=== PATIENT | female | born 1955 | race African-American/Black ===

== ENCOUNTER 2021-02-17 13:32 | Emergency (ER) | payer OTHER ==
[2021-02-17] MEDS ORDERED: ACETAMINOPHEN 500 MG TABLET (FP) PO ONE (13:56)
[2021-02-17] MEDS ORDERED: LIDOCAINE 5% TOPICAL PATCH TP ONE (13:56)
[2021-02-17 13:58] VITALS: TEMP 98.3; BMI 24.3
[2021-02-17] MEDS ORDERED: ACETAMINOPHEN 500 MG TABLET (FP) ONE (14:06)
[2021-02-17] MEDS ORDERED: LIDOCAINE 5% TOPICAL PATCH ONE (14:06)
[2021-02-17] MEDS ORDERED: METHOCARBAMOL 500 MG TABLET ONE (14:38)
[2021-02-17] MEDS ORDERED: METHOCARBAMOL 750 MG TAB PO ONE (14:40)
[2021-02-17 14:50] VITALS: PULSE 90
[2021-02-17 14:52] VITALS: BP 162/80
[2021-02-17] MEDS ORDERED: LIDOCAINE PATCH REMOVAL MC SCH (22:00)
== END 2021-02-17 15:22 | disposition home or self-care (01) ==
LOC: FER 13:32
DX: M54.42 Lumbago with sciatica, left side (principal)
CPT/HCPCS: 99283-25